=== PATIENT | female | born 1990 | race Caucasian/White ===

== ENCOUNTER 2018-05-21 09:09 | Emergency (ER) | payer MEDICAID ==
[~2018-05-21] VITALS: Ht 165.1 cm; Wt 60.0 kg
[2018-05-21] MEDS ORDERED: KETOROLAC 15MG/ML VIAL IV ONE (10:15)
[2018-05-21 12:32] VITALS: BP 125/71
== END 2018-05-21 12:34 | disposition home or self-care (01) ==
LOC: ER 09:29
DX: S10.83XA Contusion of other specified part of neck, initial encounter (principal); S30.0XXA Contusion of lower back and pelvis, initial encounter; V49.49XA Driver injured in collision with other motor vehicles in traffic accident, initial encounter; Y93.89 Activity, other specified; Y92.410 Unspecified street and highway as the place of occurrence of the external cause
CPT/HCPCS: 72050; 72110; 96374; 99284; J1885